=== PATIENT | female | born 1960 | race Caucasian/White ===

== ENCOUNTER → 2017-01-02 | Outpatient (CLI) | payer OTHER ==
[2017-01-02 09:19] LABS: BASO % 0.8 % (0.0-1.0); EOS # 0.1 K/mm3 (0.0-0.50); EOS % 3.2 % (0.0-3.0); LARGE UNSTAINED CELL # 0.1 K/mm3 (0.0-0.4); LARGE UNSTAINED CELL % 2.8 % (0.0-4.0); LYMPH # 1.2 K/mm3 (1.5-4.5); LYMPH % 29.9 % (24.0-44.0); MEAN CORPUSCULAR HEMOGLOBIN 30.6 pg (27.0-33.0); MEAN CORPUSCULAR HGB CONC 33.6 g/dl (32.0-36.5); MONO # 0.3 K/mm3 (0.0-0.8); MONO % 7.7 % (0.0-5.0); NEUTROPHILS # 2.2 K/mm3 (1.8-7.7); NEUTROPHILS % 55.6 % (36.0-66.0); PLATELET COUNT, AUTOMATED 252 k/mm3 (150-450); RED CELL DISTRIBUTION WIDTH 12.5 % (11.5-14.5); WHITE BLOOD COUNT 3.9 K/mm3 (4.0-10.0)
[2017-01-02 09:55] LABS: ALBUMIN 3.8 GM/DL (3.2-5.2); ALBUMIN/GLOBULIN RATIO 1.31 (1.00-1.93); ALKALINE PHOSPHATASE 81 U/L (45-117); ALT/SGPT 25 U/L (12-78); ANION GAP 10 MEQ/L (8-16); AST/SGOT 12 U/L (15-37); BILIRUBIN,TOTAL 0.5 MG/DL (0.2-1.0); BLOOD UREA NITROGEN 21 MG/DL (7-18); CALCIUM LEVEL 8.2 MG/DL (8.5-10.1); CARBON DIOXIDE LEVEL 24 MEQ/L (21-32); CHLORIDE LEVEL 107 MEQ/L (98-107); CHOLESTEROL LEVEL 176 MG/DL (<200); CREATININE FOR GFR 0.62 MG/DL (0.55-1.02); FREE T4 1.87 NG/DL (0.76-1.46); GLOMERULAR FILTRATION RATE > 60.0 (>51); GLUCOSE, FASTING 88 MG/DL (70-105); POTASSIUM SERUM 4.3 MEQ/L (3.5-5.1); SODIUM LEVEL 141 MEQ/L (136-145); TOTAL PROTEIN 6.7 GM/DL (6.4-8.2); TRIGLYCERIDES LEVEL 76 MG/DL (<150)
== END ==
LOC: M WUC 08:08
PROVIDERS: ATTEND Family Medicine
DX: Z13.220 Encounter for screening for lipoid disorders (principal); Z13.29 Encounter for screening for other suspected endocrine disorder; Z13.0 Encounter for screening for diseases of the blood and blood-forming organs and certain disorders involving the immune mechanism; E89.0 Postprocedural hypothyroidism

== ENCOUNTER → 2018-01-15 | Outpatient (CLI) | payer OTHER ==
[2018-01-15 12:15] LABS: BASO # 0.1 10^3/uL (0.0-0.2); BASO % 1.1 % (0.0-1.0); EOS # 0.1 10^3/uL (0.0-0.50); EOS % 2.3 % (0.0-3.0); HEMATOCRIT 44.7 % (36.0-47.0); IMMATURE GRANULOCYTE % 0.2 % (0-3.0); LYMPH # 1.9 10^3/uL (1.5-4.5); LYMPH % 32.4 % (24.0-44.0); MEAN CORPUSCULAR HEMOGLOBIN 29.6 pg (27.0-33.0); MEAN CORPUSCULAR HGB CONC 33.6 g/dl (32.0-36.5); MEAN CORPUSCULAR VOLUME 88.3 fl (80.0-96.0); MONO # 0.4 10^3/uL (0.0-0.8); MONO % 7.5 % (0.0-5.0); NEUTROPHILS # 3.2 10^3/uL (1.8-7.7); NEUTROPHILS % 56.5 % (36.0-66.0); PLATELET COUNT, AUTOMATED 303 10^3/uL (150-450); RED BLOOD COUNT 5.06 10^6/uL (4.00-5.40); RED CELL DISTRIBUTION WIDTH 12.7 % (11.5-14.5); WHITE BLOOD COUNT 5.7 10^3/uL (4.0-10.0)
[2018-01-15 12:46] LABS: TOTAL 25(OH) VITAMIN D 36.2 NG/ML (30.0-100.0)
[2018-01-15 12:55] LABS: ALBUMIN 4.1 GM/DL (3.2-5.2); ALBUMIN/GLOBULIN RATIO 1.37 (1.00-1.93); ALKALINE PHOSPHATASE 80 U/L (45-117); ALT/SGPT 32 U/L (12-78); ANION GAP 6 MEQ/L (8-16); AST/SGOT 18 U/L (7-37); BILIRUBIN,TOTAL 0.5 MG/DL (0.2-1.0); BLOOD UREA NITROGEN 20 MG/DL (7-18); CALCIUM LEVEL 8.7 MG/DL (8.5-10.1); CARBON DIOXIDE LEVEL 28 MEQ/L (21-32); CHLORIDE LEVEL 107 MEQ/L (98-107); CHOLESTEROL LEVEL 173 MG/DL (<200); CHOLESTEROL RISK RATIO 3.326 (<5); CREATININE FOR GFR 0.64 MG/DL (0.55-1.30); GLOMERULAR FILTRATION RATE > 60.0 (>51); GLUCOSE, FASTING 91 MG/DL (70-100); HDL CHOLESTEROL 52 MG/DL (>40); LDL CHOLESTEROL 105.4 MG/DL (<100); NON-HDL-C 121 MG/DL; POTASSIUM SERUM 4.2 MEQ/L (3.5-5.1); SODIUM LEVEL 141 MEQ/L (136-145); TOTAL PROTEIN 7.1 GM/DL (6.4-8.2); TRIGLYCERIDES LEVEL 78 MG/DL (<150)
== END ==
LOC: M WUC 09:36
DX: Z13.220 Encounter for screening for lipoid disorders (principal); Z13.0 Encounter for screening for diseases of the blood and blood-forming organs and certain disorders involving the immune mechanism; E89.0 Postprocedural hypothyroidism; E13.29 Other specified diabetes mellitus with other diabetic kidney complication
CPT/HCPCS: 84443

== ENCOUNTER → 2020-08-03 | Outpatient (CLI) | payer OTHER ==
[2020-08-03 10:35] LABS: BASO # 0.1 10^3/uL (0.0-0.2); EOS # 0.2 10^3/uL (0.0-0.5); EOS % 3.4 % (0.0-3.0); HEMATOCRIT 47.1 % (36.0-47.0); LYMPH # 1.3 10^3/uL (1.5-5.0); LYMPH % 24.4 % (24.0-44.0); MEAN CORPUSCULAR HEMOGLOBIN 28.4 pg (27.0-33.0); MEAN CORPUSCULAR HGB CONC 31.8 g/dl (32.0-36.5); MEAN CORPUSCULAR VOLUME 89.2 fl (80.0-96.0); MONO # 0.4 10^3/uL (0.0-0.8); MONO % 8.4 % (0.0-5.0); NEUTROPHILS # 3.3 10^3/uL (1.5-8.5); NEUTROPHILS % 62.4 % (36.0-66.0); PLATELET COUNT, AUTOMATED 282 10^3/uL (150-450); RED BLOOD COUNT 5.28 10^6/uL (4.00-5.40); WHITE BLOOD COUNT 5.2 10^3/uL (4.0-10.0)
[2020-08-03 11:38] LABS: ALBUMIN 3.9 GM/DL (3.2-5.2); ALT/SGPT 30 U/L (12-78); BILIRUBIN,TOTAL 0.6 MG/DL (0.2-1.0); BLOOD UREA NITROGEN 23 MG/DL (7-18); CALCIUM LEVEL 8.8 MG/DL (8.8-10.2); CARBON DIOXIDE LEVEL 27 MEQ/L (21-32); CHLORIDE LEVEL 106 MEQ/L (98-107); CHOLESTEROL LEVEL 216 MG/DL (<200); CHOLESTEROL RISK RATIO 4.075 (<5); CREATININE FOR GFR 0.66 MG/DL (0.55-1.30); FREE T4 1.57 NG/DL (0.76-1.46); GLOMERULAR FILTRATION RATE > 60.0 (>45); GLUCOSE, FASTING 80 MG/DL (70-100); HDL CHOLESTEROL 53 MG/DL (>40); LDL CHOLESTEROL 138 MG/DL (<100); NON-HDL-C 163 MG/DL; POTASSIUM SERUM 4.5 MEQ/L (3.5-5.1); SODIUM LEVEL 139 MEQ/L (136-145); TOTAL 25(OH) VITAMIN D 57.4 NG/ML (30.0-100.0); TOTAL PROTEIN 7.1 GM/DL (6.4-8.2); TRIGLYCERIDES LEVEL 124 MG/DL (<150)
== END ==
LOC: M WUC 08:19
PROVIDERS: ATTEND Family Medicine
DX: E89.0 Postprocedural hypothyroidism (principal); Z13.0 Encounter for screening for diseases of the blood and blood-forming organs and certain disorders involving the immune mechanism; Z13.29 Encounter for screening for other suspected endocrine disorder; Z13.220 Encounter for screening for lipoid disorders

== ENCOUNTER → 2021-08-15 | Outpatient (CLI) | payer BC, OTHER ==
[2021-08-15 10:38] LABS: BASO # 0.1 10^3/uL (0.0-0.2); BASO % 1.4 % (0.0-1.0); EOS # 0.2 10^3/uL (0.0-0.5); EOS % 4.6 % (0.0-3.0); HEMATOCRIT 47.7 % (36.0-47.0); HEMOGLOBIN 15.7 g/dl (12.0-15.5); LYMPH # 1.2 10^3/uL (1.5-5.0); LYMPH % 24.3 % (24.0-44.0); MEAN CORPUSCULAR HEMOGLOBIN 29.3 pg (27.0-33.0); MEAN CORPUSCULAR HGB CONC 32.9 g/dl (32.0-36.5); MONO # 0.5 10^3/uL (0.0-0.8); MONO % 9.3 % (2.0-8.0); PLATELET COUNT, AUTOMATED 310 10^3/uL (150-450); RED BLOOD COUNT 5.36 10^6/uL (4.00-5.40)
[2021-08-15 11:47] LABS: ALBUMIN 3.8 GM/DL (3.2-5.2); ALT/SGPT 26 U/L (12-78); BILIRUBIN,TOTAL 0.5 MG/DL (0.2-1.0); BLOOD UREA NITROGEN 22 MG/DL (7-18); CALCIUM LEVEL 9.2 MG/DL (8.8-10.2); CARBON DIOXIDE LEVEL 29 MEQ/L (21-32); CHLORIDE LEVEL 105 MEQ/L (98-107); CHOLESTEROL LEVEL 190 MG/DL (<200); CREATININE FOR GFR 0.62 MG/DL (0.55-1.30); FREE T4 1.25 NG/DL (0.76-1.46); GLOMERULAR FILTRATION RATE > 60.0 (>45); GLUCOSE, FASTING 94 MG/DL (70-100); HDL CHOLESTEROL 46 MG/DL (>40); LDL CHOLESTEROL 121 MG/DL (<100); NON-HDL-C 144 MG/DL; POTASSIUM SERUM 4.3 MEQ/L (3.5-5.1); SODIUM LEVEL 140 MEQ/L (136-145); TOTAL 25(OH) VITAMIN D 39.2 NG/ML (30.0-100.0); TOTAL PROTEIN 6.8 GM/DL (6.4-8.2); TRIGLYCERIDES LEVEL 115 MG/DL (<150)
== END ==
LOC: M PLALAB 07:46
PROVIDERS: ATTEND Family Medicine
DX: Z13.220 Encounter for screening for lipoid disorders (principal)

== ENCOUNTER → 2021-08-20 | Outpatient (CLI) | payer BC, OTHER | LOC: M WHC 13:29 | PROVIDERS: ATTEND Family Medicine | DX: Z12.31 Encounter for screening mammogram for malignant neoplasm of breast (principal) ==

== ENCOUNTER → 2022-04-23 | Outpatient (REF) | payer BC, OTHER | LOC: M SFHCDERM 14:21 | PROVIDERS: ATTEND Physician Assistant | DX: C44.212 Basal cell carcinoma of skin of right ear and external auricular canal (principal) ==

== ENCOUNTER → 2022-09-23 | Outpatient (CLI) | payer BC, OTHER ==
[2022-09-23 12:15] LABS: BASO # 0.1 10^3/uL (0.0-0.2); BASO % 1.4 % (0.0-1.0); EOS # 0.2 10^3/uL (0.0-0.5); EOS % 4.3 % (0.0-3.0); HEMATOCRIT 48.4 % (36.0-47.0); HEMOGLOBIN 15.6 g/dl (12.0-15.5); LYMPH # 1.3 10^3/uL (1.5-5.0); LYMPH % 26.5 % (24.0-44.0); MEAN CORPUSCULAR HEMOGLOBIN 28.8 pg (27.0-33.0); MEAN CORPUSCULAR HGB CONC 32.2 g/dl (32.0-36.5); MEAN CORPUSCULAR VOLUME 89.3 fl (80.0-96.0); MONO # 0.4 10^3/uL (0.0-0.8); MONO % 8.9 % (2.0-8.0); NEUTROPHILS # 2.8 10^3/uL (1.5-8.5); NEUTROPHILS % 58.3 % (36.0-66.0); PLATELET COUNT, AUTOMATED 281 10^3/uL (150-450); RED BLOOD COUNT 5.42 10^6/uL (4.00-5.40); WHITE BLOOD COUNT 4.8 10^3/uL (4.0-10.0)
[2022-09-23 12:43] LABS: ALBUMIN 3.9 G/DL (3.2-5.2); ALKALINE PHOSPHATASE 76 U/L (46-116); ALT/SGPT 29 U/L (7.0-40); AST/SGOT 24 U/L (<34); BILIRUBIN,TOTAL 0.6 MG/DL (0.3-1.2); BLOOD UREA NITROGEN 26 MG/DL (9-23); CALCIUM LEVEL 9.1 MG/DL (8.3-10.6); CARBON DIOXIDE LEVEL 29 MMOL/L (20-31); CHLORIDE LEVEL 106 MMOL/L (98-107); CHOLESTEROL LEVEL 197 MG/DL (<200); CHOLESTEROL RISK RATIO 4.38 (<5); CREATININE FOR GFR 0.63 MG/DL (0.55-1.30); GLOMERULAR FILTRATION RATE > 60.0 (>45); GLUCOSE, FASTING 91 MG/DL (74-106); HDL CHOLESTEROL 44.9 MG/DL (>40); LDL CHOLESTEROL 121.1 MG/DL (<100); NON-HDL-C 152 MG/DL; POTASSIUM SERUM 4.5 MMOL/L (3.5-5.1); SODIUM LEVEL 140 MMOL/L (136-145); TOTAL PROTEIN 6.6 G/DL (5.7-8.2); TRIGLYCERIDES LEVEL 155 MG/DL (<150)
[2022-09-23 12:47] LABS: FREE T4 1.54 NG/DL (0.89-1.76); THYROID STIMULATING HORMONE 0.618 uIU/ML (0.55-4.78); TOTAL 25(OH) VITAMIN D 39.3 NG/ML (20.0-100.0)
== END ==
LOC: M PLALAB 07:41
PROVIDERS: ATTEND Family Medicine
DX: E89.0 Postprocedural hypothyroidism (principal); Z13.220 Encounter for screening for lipoid disorders; Z13.29 Encounter for screening for other suspected endocrine disorder; Z13.0 Encounter for screening for diseases of the blood and blood-forming organs and certain disorders involving the immune mechanism

== ENCOUNTER → 2022-12-23 | Outpatient (CLI) | payer BC, OTHER ==
[2022-12-23 15:46] LABS: BASO # 0.1 10^3/uL (0.0-0.2); BASO % 0.8 % (0.0-1.0); EOS # 0.1 10^3/uL (0.0-0.5); EOS % 1.7 % (0.0-3.0); HEMATOCRIT 47.3 % (36.0-47.0); HEMOGLOBIN 15.8 g/dl (12.0-15.5); LYMPH # 1.4 10^3/uL (1.5-5.0); LYMPH % 22.6 % (24.0-44.0); MEAN CORPUSCULAR HEMOGLOBIN 29.2 pg (27.0-33.0); MEAN CORPUSCULAR HGB CONC 33.4 g/dl (32.0-36.5); MEAN CORPUSCULAR VOLUME 87.3 fl (80.0-96.0); MONO # 0.4 10^3/uL (0.0-0.8); NEUTROPHILS # 4.3 10^3/uL (1.5-8.5); NEUTROPHILS % 68.4 % (36.0-66.0); PLATELET COUNT, AUTOMATED 298 10^3/uL (150-450); RED BLOOD COUNT 5.42 10^6/uL (4.00-5.40); WHITE BLOOD COUNT 6.3 10^3/uL (4.0-10.0)
[2022-12-23 16:14] LABS: CARCINOEMBRYONIC ANTIGEN < 2.0 NG/ML (<2.5)
[2022-12-23 16:29] LABS: CA19-9 TUMOR MARKER,CARBOHYDRA 3.3 U/ML (<35.0)
== END ==
LOC: M PLALAB 14:16
PROVIDERS: ATTEND Nurse Practitioner Adult Health
DX: N93.9 Abnormal uterine and vaginal bleeding, unspecified (principal)

== ENCOUNTER → 2022-12-23 | Outpatient (CLI) | payer BC, OTHER | LOC: M WHC 11:38 | PROVIDERS: ATTEND Family Medicine | DX: N64.4 Mastodynia (principal) | CPT/HCPCS: 76642; 77066; G0279 ==

== ENCOUNTER → 2022-12-23 | Outpatient (CLI) | payer BC, OTHER | LOC: M WHC 11:42 | PROVIDERS: ATTEND Nurse Practitioner Adult Health | DX: N85.8 Other specified noninflammatory disorders of uterus (principal) ==

== ENCOUNTER → 2022-12-25 | Outpatient (CLI) | payer BC, OTHER ==
[~2022-12-25] MED LIST: GASTROGRAFIN SOLUTION 30ML As Ordered ONE; ISOVUE-370 76% 100ML VIAL As Ordered ONE
== END ==
LOC: M RAD 14:46
PROVIDERS: ATTEND Nurse Practitioner Adult Health
DX: N93.9 Abnormal uterine and vaginal bleeding, unspecified (principal); I70.0 Atherosclerosis of aorta; N83.291 Other ovarian cyst, right side; N85.9 Noninflammatory disorder of uterus, unspecified
CPT/HCPCS: 74177; Q9963; Q9967

== ENCOUNTER → 2023-01-31 | Outpatient (CLI) | payer BC, OTHER ==
[2023-01-31 15:31] LABS: BASO # 0.1 10^3/uL (0.0-0.2); BASO % 0.7 % (0.0-1.0); EOS # 0.1 10^3/uL (0.0-0.5); EOS % 0.9 % (0.0-3.0); HEMATOCRIT 42.9 % (36.0-47.0); HEMOGLOBIN 14.3 g/dl (12.0-15.5); LYMPH # 1.5 10^3/uL (1.5-5.0); LYMPH % 18.1 % (24.0-44.0); MEAN CORPUSCULAR HEMOGLOBIN 29.5 pg (27.0-33.0); MEAN CORPUSCULAR HGB CONC 33.3 g/dl (32.0-36.5); MEAN CORPUSCULAR VOLUME 88.6 fl (80.0-96.0); MONO # 0.5 10^3/uL (0.0-0.8); MONO % 6.6 % (2.0-8.0); NEUTROPHILS # 5.9 10^3/uL (1.5-8.5); NEUTROPHILS % 73.5 % (36.0-66.0); PLATELET COUNT, AUTOMATED 329 10^3/uL (150-450); RED BLOOD COUNT 4.84 10^6/uL (4.00-5.40)
[2023-01-31 15:42] LABS: INR 0.93; PROTHROMBIN TIME 12.7 SECONDS (12.5-14.5)
[2023-01-31 15:43] LABS: PARTIAL THROMBOPLASTIN TIME 34.2 SECONDS (24.8-34.2)
[2023-01-31 16:02] LABS: ALKALINE PHOSPHATASE 74 U/L (46-116); ALT/SGPT 22 U/L (7.0-40); AST/SGOT 10 U/L (<34); BILIRUBIN,TOTAL 0.5 MG/DL (0.3-1.2); BLOOD UREA NITROGEN 18 MG/DL (9-23); CALCIUM LEVEL 8.9 MG/DL (8.3-10.6); CARBON DIOXIDE LEVEL 26 MMOL/L (20-31); CHLORIDE LEVEL 108 MMOL/L (98-107); CREATININE FOR GFR 0.59 MG/DL (0.55-1.30); GLOMERULAR FILTRATION RATE > 60.0 (>45); GLUCOSE, FASTING 92 MG/DL (74-106); POTASSIUM SERUM 3.9 MMOL/L (3.5-5.1); SODIUM LEVEL 142 MMOL/L (136-145); TOTAL PROTEIN 6.5 G/DL (5.7-8.2)
[2023-01-31 16:06] LABS: THYROID STIMULATING HORMONE 0.236 uIU/ML (0.55-4.78)
== END ==
LOC: M PLALAB 12:17
PROVIDERS: ATTEND Nurse Practitioner Adult Health
DX: N93.9 Abnormal uterine and vaginal bleeding, unspecified (principal); E89.0 Postprocedural hypothyroidism

== ENCOUNTER → 2023-10-06 | Outpatient (REF) | payer BC, OTHER ==
[~2023-10-06] MED LIST changes: +ALPR0.25 PO; +CLAR1TAB13 PO; -GASTROGRAFIN SOLUTION 30ML As Ordered ONE; -ISOVUE-370 76% 100ML VIAL As Ordered ONE; +SYNT88TA2 PO
== END ==
LOC: M SFHCDERM 11:24
PROVIDERS: ATTEND Physician Assistant
DX: D48.9 Neoplasm of uncertain behavior, unspecified (principal); Z53.9 Procedure and treatment not carried out, unspecified reason

== ENCOUNTER → 2024-02-19 | Outpatient (CLI) | payer BC ==
[~2024-02-19] MED LIST changes: +LEXA5TAB13
== END ==
LOC: M WHC 11:53
PROVIDERS: ATTEND Family Medicine
DX: Z12.31 Encounter for screening mammogram for malignant neoplasm of breast (principal); Z13.820 Encounter for screening for osteoporosis; R92.333 Mammographic heterogeneous density, bilateral breasts; M85.89 Other specified disorders of bone density and structure, multiple sites

== ENCOUNTER → 2024-04-13 | Outpatient (CLI) | payer BC ==
[~2024-04-13] MED LIST changes: +LENV1CAP PO; +MAGICMW SSP; +ZOLO50TA PO
== END ==
LOC: M ONCM 08:50
PROVIDERS: ATTEND Dietitian, Registered
DX: C54.1 Malignant neoplasm of endometrium (principal); Z71.3 Dietary counseling and surveillance; Z68.22 Body mass index [BMI] 22.0-22.9, adult

== ENCOUNTER → 2024-04-23 | Outpatient (CLI) | payer BC ==
[~2024-04-23] MED LIST changes: +ISOVUE-370 76% 100ML VIAL As Ordered ONE
== END ==
LOC: M RAD 07:59
PROVIDERS: ATTEND Dietitian, Registered
DX: C54.1 Malignant neoplasm of endometrium (principal)
CPT/HCPCS: 71260; 74177; Q9967

== ENCOUNTER → 2024-11-02 | Outpatient (CLI) | payer MEDICARE, BC ==
[~2024-11-02] MED LIST changes: +ELIQ5TAB PO; -ISOVUE-370 76% 100ML VIAL As Ordered ONE; +MEMA10TA PO; +ONDA-282 PO; +PROHANCE 279.3MG/ML 5ML VIAL As Ordered ONE; +TRAZ-252 PO
== END ==
LOC: M RAD 10:32
PROVIDERS: ATTEND Family Medicine
DX: H53.2 Diplopia (principal); C54.1 Malignant neoplasm of endometrium
CPT/HCPCS: 70553; A9576

== ENCOUNTER → 2024-11-04 | Outpatient (CLI) | payer MEDICARE, BC ==
[~2024-11-04] MED LIST changes: -PROHANCE 279.3MG/ML 5ML VIAL As Ordered ONE
== END ==
LOC: M ONCR 13:49
PROVIDERS: ATTEND General Practice
DX: C79.31 Secondary malignant neoplasm of brain (principal); C55 Malignant neoplasm of uterus, part unspecified; Z90.710 Acquired absence of both cervix and uterus; Z90.722 Acquired absence of ovaries, bilateral; Z90.79 Acquired absence of other genital organ(s); Z92.21 Personal history of antineoplastic chemotherapy; Z92.29 Personal history of other drug therapy; Z85.820 Personal history of malignant melanoma of skin; Z90.89 Acquired absence of other organs; Z80.1 Family history of malignant neoplasm of trachea, bronchus and lung; Z79.01 Long term (current) use of anticoagulants; Z79.890 Hormone replacement therapy; Z79.899 Other long term (current) drug therapy

== ENCOUNTER 2024-11-19 10:34 | Outpatient (RCR) | payer MEDICARE, BC ==
[~2024-11-19 10:34] MED LIST changes: +DEXA2TA PO; +DEXA4TA PO
[2024-11-19] MEDS ORDERED: DEXA1TA PO (12:36)
[2024-12-03] MEDS ORDERED: BISA10SU27 PR (11:01)
== END 2024-11-29 ==
LOC: M ONCR 10:34
PROVIDERS: ATTEND General Practice
DX: Z51.0 Encounter for antineoplastic radiation therapy (principal); C79.31 Secondary malignant neoplasm of brain

== ENCOUNTER → 2024-11-29 | Outpatient (CLI) | payer MEDICARE, BC ==
[~2024-11-29] MED LIST changes: +DEXA1TA PO; +PROHANCE 279.3MG/ML 15ML VIAL As Ordered ONE
== END ==
LOC: M RAD 16:28
PROVIDERS: ATTEND General Practice
DX: C79.31 Secondary malignant neoplasm of brain (principal)
CPT/HCPCS: 72158; A9576

== ENCOUNTER → 2024-11-30 | Outpatient (CLI) | payer MEDICARE, BC ==
[~2024-11-30] MED LIST changes: +BISA10SU27 PR; -PROHANCE 279.3MG/ML 15ML VIAL As Ordered ONE
== END ==
LOC: M ONCR 09:48
PROVIDERS: ATTEND General Practice
DX: R33.8 Other retention of urine (principal)

== ENCOUNTER 2024-12-14 16:00 | Outpatient (RCR) | payer MEDICARE, BC ==
[2024-12-28] MEDS ORDERED: OXYC1SOL3 PO (17:04)
[2024-12-31] MEDS ORDERED: ONDA-282 PO (16:04)
== END 2024-12-29 ==
LOC: M ONCR 16:00
PROVIDERS: ATTEND General Practice
DX: Z51.0 Encounter for antineoplastic radiation therapy (principal); C79.49 Secondary malignant neoplasm of other parts of nervous system

== ENCOUNTER → 2024-12-21 | Outpatient (CLI) | payer MEDICARE, BC | LOC: M ONCR 15:00 | PROVIDERS: ATTEND General Practice | DX: C79.32 Secondary malignant neoplasm of cerebral meninges (principal); Z92.3 Personal history of irradiation; Z96.0 Presence of urogenital implants ==

== ENCOUNTER 2024-12-27 12:25 | Outpatient (RCR) | payer MEDICARE, BC ==
[2024-12-28] MEDS ORDERED: OXYC1SOL3 PO (17:04)
[2024-12-31] MEDS ORDERED: ONDA-282 PO (16:04)
== END 2024-12-29 ==
LOC: M PT 12:25
PROVIDERS: ATTEND General Practice
DX: C79.49 Secondary malignant neoplasm of other parts of nervous system (principal)

== ENCOUNTER → 2024-12-31 | Outpatient (CLI) | payer MEDICARE, BC ==
[~2024-12-31] MED LIST changes: +OXYC1SOL3 PO
== END ==
LOC: M ONCR 15:28
PROVIDERS: ATTEND General Practice
DX: C79.49 Secondary malignant neoplasm of other parts of nervous system (principal); C79.31 Secondary malignant neoplasm of brain; Z92.3 Personal history of irradiation

== ENCOUNTER 2025-01-02 11:47 | Emergency (ER) | payer MEDICARE, BC ==
[~2025-01-02] VITALS: Ht 154.9 cm; Wt 48.6 kg
[2025-01-02 14:53] LABS: KETONE, URINE AUTO RFX NEGATIVE (NEGATIVE); LEUKOCYTE ESTERASE UR AUTO RFX 2+ (NEGATIVE); MUCUS, URINE RFX SMALL (NEGATIVE); NITRITE, URINE AUTO RFX POSITIVE (NEGATIVE); RBC, URINE AUTO RFX 14 /HPF (0-3); SQUAM EPITHELIAL CELL UR AURFX 0 /HPF (0-6); WBC, URINE AUTO RFX 131 /HPF (0-3)
[2025-01-02 15:41] VITALS: BP 116/70; TEMP 97.8; O2SAT 96
[2025-01-05] MEDS ORDERED: CIPR750T2 PO (11:59)
== END 2025-01-02 15:58 | disposition home or self-care (01) ==
LOC: M ED 11:47
DX: T83.021A Displacement of indwelling urethral catheter, initial encounter (principal); Z79.01 Long term (current) use of anticoagulants; Z79.899 Other long term (current) drug therapy

== ENCOUNTER → 2025-03-16 | Outpatient (CLI) | payer MEDICARE, BC ==
[~2025-03-16] MED LIST changes: +ALPR0.5T3 PO; +BACT800T5 PO; +CIPR750T2 PO; +NITR100C3 PO; +PROHANCE 279.3MG/ML 15ML VIAL As Ordered ONE; +SERT-141 PO; +SULF1TAB23 PO; +TIZA2CAP3 PO
== END ==
LOC: M RAD 14:24
PROVIDERS: ATTEND General Practice
DX: C79.31 Secondary malignant neoplasm of brain (principal); C79.51 Secondary malignant neoplasm of bone; G93.6 Cerebral edema; J32.8 Other chronic sinusitis; H70.893 Other mastoiditis and related conditions, bilateral; G31.9 Degenerative disease of nervous system, unspecified; M47.814 Spondylosis without myelopathy or radiculopathy, thoracic region; R91.1 Solitary pulmonary nodule
CPT/HCPCS: 70553; 72157; A9576

== ENCOUNTER 2025-03-21 18:30 | Emergency (ER) | payer MEDICARE, BC ==
[~2025-03-21] VITALS: Ht 154.9 cm; Wt 45.5 kg
[~2025-03-21 18:30] MED LIST changes: -PROHANCE 279.3MG/ML 15ML VIAL As Ordered ONE; -SULF1TAB23 PO
[2025-03-21 19:32] LABS: KETONE, URINE AUTO RFX NEGATIVE (NEGATIVE); MUCUS, URINE RFX SMALL (NEGATIVE); RBC, URINE AUTO RFX 2 /HPF (0-3); SQUAM EPITHELIAL CELL UR AURFX 0 /HPF (0-6)
[2025-03-21 19:33] LABS: LEUKOCYTE ESTERASE UR AUTO RFX 3+ (NEGATIVE); NITRITE, URINE AUTO RFX POSITIVE (NEGATIVE); WBC, URINE AUTO RFX 11 /HPF (0-3)
[2025-03-21] MEDS ORDERED: SULF1TAB23 PO (19:57)
[2025-03-21 20:37] VITALS: BP 114/70; TEMP 97; O2SAT 98
[2025-03-25] MEDS ORDERED: TRAZ-252 PO (15:00)
[2025-03-25] MEDS ORDERED: ZOLO100T PO (15:05)
== END 2025-03-21 20:39 | disposition home or self-care (01) ==
LOC: M ED 18:30
DX: T83.511A Infection and inflammatory reaction due to indwelling urethral catheter, initial encounter (principal); N39.0 Urinary tract infection, site not specified; E03.9 Hypothyroidism, unspecified; C54.1 Malignant neoplasm of endometrium; Z86.718 Personal history of other venous thrombosis and embolism; Z79.01 Long term (current) use of anticoagulants; Z79.899 Other long term (current) drug therapy

== ENCOUNTER → 2025-03-25 | Outpatient (CLI) | payer MEDICARE, BC ==
[~2025-03-25] MED LIST changes: +SULF1TAB23 PO; +ZOLO100T PO
[2025-03-25] MEDS: SODIUM CHLORIDE 0.9% INJ 10 ML SYR IV PRN (15:50)
[2025-03-25 16:07] LABS: BASO # 0.0 10^3/uL (0.0-0.2); BASO % 0.3 % (0.0-1.0); EOS # 0.0 10^3/uL (0.0-0.5); EOS % 0.0 % (0.0-3.0); LYMPH # 0.4 10^3/uL (1.5-5.0); LYMPH % 12.0 % (24.0-44.0); MONO # 0.1 10^3/uL (0.0-0.8); MONO % 3.8 % (2.0-8.0); NEUTROPHILS # 2.8 10^3/uL (1.5-8.5); NEUTROPHILS % 83.0 % (36.0-66.0)
[2025-03-25 16:28] LABS: ALT/SGPT 34 U/L (7.0-40); AST/SGOT 27 U/L (<34); CALCIUM LEVEL 7.6 MG/DL (8.3-10.6); CARBON DIOXIDE LEVEL 22 MMOL/L (20-31); CHLORIDE LEVEL 103 MMOL/L (98-107); CREATININE FOR GFR 0.36 MG/DL (0.55-1.30); GLOMERULAR FILTRATION RATE > 90.0 (>45); POTASSIUM SERUM 3.6 MMOL/L (3.5-5.1); SODIUM LEVEL 139 MMOL/L (136-145)
[2025-03-25 16:44] LABS: PLATELET COUNT, AUTOMATED 45 10^3/uL (150-450)
[2025-03-25 16:46] LABS: FREE T4 1.95 NG/DL (0.89-1.76)
== END ==
LOC: M ONCR 13:24
PROVIDERS: ATTEND General Practice
DX: C79.31 Secondary malignant neoplasm of brain (principal); C79.49 Secondary malignant neoplasm of other parts of nervous system; C54.9 Malignant neoplasm of corpus uteri, unspecified; Z79.01 Long term (current) use of anticoagulants; Z79.52 Long term (current) use of systemic steroids; Z79.899 Other long term (current) drug therapy; Z90.710 Acquired absence of both cervix and uterus; Z90.722 Acquired absence of ovaries, bilateral; Z90.79 Acquired absence of other genital organ(s); Z92.21 Personal history of antineoplastic chemotherapy; Z92.3 Personal history of irradiation
CPT/HCPCS: 36415; 80053; 84439; 84443; 85025; 85049; 85055; G0463; J1642

== ENCOUNTER → 2025-04-01 | Outpatient (CLI) | payer MEDICARE, BC ==
[~2025-04-01] MED LIST changes: +ELIQ2.5T PO; +LORA1TAB23 PO; +MORP1SOL PO; +MORP1SOL5 PO; +SENN-186 PO; +TRAN1DIS4 TOP
[2025-04-01 15:28] VITALS: BP 116/67; O2SAT 95
== END ==
LOC: M PAL 14:36
PROVIDERS: ATTEND Family Medicine
DX: Z51.5 Encounter for palliative care (principal); Z66 Do not resuscitate; C54.9 Malignant neoplasm of corpus uteri, unspecified; C79.31 Secondary malignant neoplasm of brain; C79.51 Secondary malignant neoplasm of bone; Z92.21 Personal history of antineoplastic chemotherapy; Z92.3 Personal history of irradiation; Z79.891 Long term (current) use of opiate analgesic; G83.4 Cauda equina syndrome; Z79.899 Other long term (current) drug therapy
CPT/HCPCS: G0463 ×2

== ENCOUNTER → 2025-04-01 | Outpatient (CLI) | payer MEDICARE, BC ==
[~2025-04-01] MED LIST changes: -ELIQ2.5T PO; -LORA1TAB23 PO; -MORP1SOL PO; -MORP1SOL5 PO; -TRAN1DIS4 TOP
== END ==
LOC: M ONCR 14:33
PROVIDERS: ATTEND General Practice
DX: L89.152 Pressure ulcer of sacral region, stage 2 (principal); R53.1 Weakness; R82.998 Other abnormal findings in urine; Z97.8 Presence of other specified devices; Z79.52 Long term (current) use of systemic steroids

== ENCOUNTER → 2025-04-06 | Outpatient (CLI) | payer MEDICARE, BC ==
[2025-04-06 14:20] VITALS: BP 109/62; O2SAT 97
== END ==
LOC: M PAL 14:09
PROVIDERS: ATTEND Family Medicine
DX: Z51.5 Encounter for palliative care (principal); Z66 Do not resuscitate; C54.9 Malignant neoplasm of corpus uteri, unspecified; C79.31 Secondary malignant neoplasm of brain; C79.51 Secondary malignant neoplasm of bone; Z92.21 Personal history of antineoplastic chemotherapy; Z92.3 Personal history of irradiation; Z79.891 Long term (current) use of opiate analgesic; Z79.899 Other long term (current) drug therapy